=== PATIENT | male | born 1990 | race Two or more races ===

== ENCOUNTER 2022-07-02 11:17 | Emergency (ER) | payer OTHER ==
[~2022-07-02] VITALS: Ht 175.3 cm; Wt 77.1 kg
[2022-07-02] MEDS ORDERED: VYVANSE70 MG PO (11:56)
== END 2022-07-02 15:28 | disposition home or self-care (01) ==
LOC: ER 11:17
DX: A90 Dengue fever [classical dengue] (principal); D69.6 Thrombocytopenia, unspecified; R10.12 Left upper quadrant pain

== ENCOUNTER 2022-07-19 19:00 | Emergency (ER) | payer OTHER ==
[~2022-07-19] VITALS: Ht 175.3 cm; Wt 76.7 kg
[~2022-07-19 19:00] MED LIST: VYVANSE70 MG PO
== END 2022-07-20 13:17 | disposition home or self-care (01) ==
LOC: ER 19:00
DX: R19.7 Diarrhea, unspecified (principal); Z20.822 Contact with and (suspected) exposure to COVID-19